=== PATIENT | male | born 2000 | race Caucasian/White ===

== ENCOUNTER 2019-02-03 09:15 | Outpatient (CLI) | payer BC | END 2019-02-03 09:16 | disposition home or self-care (01) | LOC: CTENTCT 09:15 | PROVIDERS: ATTEND Specialist | DX: J33.9 Nasal polyp, unspecified (principal) | CPT/HCPCS: 70486 ==

== ENCOUNTER → 2019-02-18 | Day surgery (SDC) | payer BC ==
[2019-02-17 10:57] VITALS: BMI 20.9
[~2019-02-18] MED LIST: EPINEPHrine 1 MG/ML AMP ONE; Fentanyl 100 MCG/2 ML VIAL ONE; Hydrocodone-Acetamin 15 ML UDCUP ONE; Lidocaine 1% w/Epinephrine 1:100K 20 ML VIAL ONE; Meperidine HCl/PF 25 MG/ML VIAL ONE; Midazolam HCl 2 mg/2 ml Vial ONE; Oxymetazoline HCl 0.05% ( 15 ML ) ONE; Triamcinolone 40 MG/ML VIAL ONE
--- NOTE | 2019-02-19 09:57 | OP ---
DATE OF PROCEDURE: 02/18/2019 PREOPERATIVE DIAGNOSES: 1. Chronic sinusitis. 2. Allergic fungal sinusitis. 3. Nasal polyposis. 4. Hypertrophic inferior turbinates. POSTOPERATIVE DIAGNOSES: 1. Chronic sinusitis. 2. Allergic fungal sinusitis. 3. Nasal polyposis. 4. Hypertrophic inferior turbinates. PROCEDURES PERFORMED: 1. Stereotactic imaging using computer guidance system. 2. Bilateral nasal endoscopy with polypectomy. 3. Bilateral nasal endoscopy with frontal sinusotomy. 4. Bilateral nasal endoscopy with total ethmoidectomy. 5. Bilateral nasal endoscopy with sphenoidotomy. 6. Bilateral nasal endoscopy with maxillary antrostomy with removal of tissue. 7. Bilateral nasal endoscopy with submucosal resection of inferior turbinates. FINDINGS: The patient had dramatically extensive polyp and allergic fungal mucin with expansion of the intraorbital space, natural os of the frontal recess, and displacement of maxillary sinuses. Copious amounts of fungal debris and polyps were addressed. DESCRIPTION OF PROCEDURE: BILATERAL NASAL ENDOSCOPY WITH POLYPECTOMY: Under endoscopic visualization, the nasal cavity was systematically examined and encountered large inflammatory polyps. These polyps were infiltrated 1% lidocaine with 1:100,000 epinephrine. The polyps were then addressed using the [employer] shaver. Then, the polyps were removed with care not to injure the surrounding normal mucosa. Samples of polyps were taken and sent for histologic evaluation. Bleeding was then controlled. BILATERAL NASAL ENDOSCOPY WITH FRONTAL SINUSOTOMY: Following the ethmoidectomy, we then turned our attention to the frontal nasal recess. The agger nasi cells were addressed and the frontal recess was exposed. The natural opening to the frontal sinus was identified. At this point, any obstructing shrouds of mucosa and bony fragments were removed with a curved microdebrider. The wound was then examined and found to be free of any obstructing debris. We then turned our attention to the contralateral side and performed a similar procedure again under endoscopic visualization using a 45-degree scope. We were able to visualize the frontal recess. Obstructing shrouds of mucosa and bone were removed with a microdebrider. The natural os of frontal sinus was identified and enlarged and irrigated. At this point, the frontal sinusotomy was completed and we turned to the next area of concern. BILATERAL NASAL ENDOSCOPY WITH TOTAL ETHMOIDECTOMY: The anterior face of the ethmoid bulla was entered and with the micro-debrider, dissection continued posteriorly to the ground lamella. The limits of dissection included the insertion of the middle turbinate, medial orbital wall, and base of skull. We similarly identified the frontal recess and removed shrouds of bone and debris in that region to obtain patency into the agger nasi region and frontal recess. We then entered the ground lamella and its anteroinferior aspect and proceeded posteriorly, opening the posterior ethmoid air-cell system. Again, the limits of dissection included the base of skull and medial orbital wall. BILATERAL NASAL ENDOSCOPY WITH SPHENOIDOTOMY: The anterior face of the sphenoid was identified and entered in its extreme anteroinferior aspect. A sphenoid punch was then used to enlarge the sphenoidotomy and no injury to the optic nerve or internal carotid artery occurred. BILATERAL NASAL ENDOSCOPY WITH MAXILLARY ANTROSTOMY WITH REMOVAL OF TISSUE: The uncinate was then identified and the extent of the uncinate was appreciated by out-fracturing the uncinate with the ball-tip probe. We then used the sickle blade to disarticulate the uncinate from the lateral nasal wall. This was then removed with straight biting and upbiting punches with the remaining shrouds of mucosa and bony septum removed with the micro-debrider. The natural os of the maxillary sinus was then identified and enlarged with the maxillary punches and back biting forceps. BILATERAL NASAL ENDOSCOPY WITH SUBMUCOSAL RESECTION OF INFERIOR TURBINATES: After consent was obtained, the patient was identified, brought to the operating room, and placed on the operating room table in the supine position. Consent was obtained, notifying the patient of the possibility of additional infections, bleeding, brain injury, and eye/orbital injury. The patient was placed on the operating room table, and general endotracheal anesthesia and intravenous access was obtained. The patient was then positioned, prepped and draped for endoscopic sinus surgery. Nasal preparation included trimming nasal vestibular hairs and spraying in topical Afrin. We then placed Afrin topical solution on nasal pledgets and strategically located them intranasally. The perinasal mucosa was injected with 1% lidocaine with 1:100,000 epinephrine in the submucoperichondrial plane of the septum, lateral nasal wall, and anterior to the uncinate. The patient was then prepped and draped in a sterile fashion and positioned for endoscopic sinus surgery. With the 0-degree endoscope, the patient underwent systematic nasal endoscopy. There were no suspicious internasal masses or lesions identified. We then focused our attention to the osteomeatal complex region under the middle turbinate. The inferior turbinates were visualized with a 0 degree endoscope and outfractured with a [place] elevator. The inferior medial aspect was cauterized with the electrocautery. Hemostasis was obtained . After adequate airway was established, we turned our attention to the contralateral side and used a similar procedure. Again, a [place] elevator was used to outfracture inferior turbinates under endoscopic visualization. With a suction cautery, the free inferior medial aspect was cauterized under direct visualization along the length of the inferior turbinate. At this point, we then turned our attention to the contralateral side and proceeded with endoscopic sinus surgery. STEROTACTIC IMAGING USING COMPUTER GUIDANCE SYSTEM At the completion of the case, Rice keel splints were placed in the ethmoid cavities after the ethmoidectomy. There were no complications. The patient tolerated the procedure well and was discharged to the recovery room in stable condition prior to return to the preoperative day stay with ultimate discharge home. Prescriptions for pain medication and antibiotics were provided. The patient received intramuscular Depo-Medrol during the case. Job ID: [id number]
== END ==
LOC: SDC 08:47
PROVIDERS: ATTEND Specialist
PROC: 09BL8ZZ Excision of Nasal Turbinate, Via Natural or Artificial Opening Endoscopic (ICD-10-PCS; principal; 2019-02-18)
PROC: 09BU8ZZ Excision of Right Ethmoid Sinus, Via Natural or Artificial Opening Endoscopic (ICD-10-PCS; principal; 2019-02-18)
PROC: 099Q8ZZ Drainage of Right Maxillary Sinus, Via Natural or Artificial Opening Endoscopic (ICD-10-PCS; principal; 2019-02-18)
PROC: 09CX8ZZ Extirpation of Matter from Left Sphenoid Sinus, Via Natural or Artificial Opening Endoscopic (ICD-10-PCS; principal; 2019-02-18)
PROC: 8E09XBZ Computer Assisted Procedure of Head and Neck Region (ICD-10-PCS; principal; 2019-02-18)
PROC: 09CW8ZZ Extirpation of Matter from Right Sphenoid Sinus, Via Natural or Artificial Opening Endoscopic (ICD-10-PCS; principal; 2019-02-18)
PROC: 09BS8ZZ Excision of Right Frontal Sinus, Via Natural or Artificial Opening Endoscopic (ICD-10-PCS; principal; 2019-02-18)
PROC: 099R8ZZ Drainage of Left Maxillary Sinus, Via Natural or Artificial Opening Endoscopic (ICD-10-PCS; principal; 2019-02-18)
PROC: 09BV8ZZ Excision of Left Ethmoid Sinus, Via Natural or Artificial Opening Endoscopic (ICD-10-PCS; principal; 2019-02-18)
PROC: 09BT8ZZ Excision of Left Frontal Sinus, Via Natural or Artificial Opening Endoscopic (ICD-10-PCS; principal; 2019-02-18)
DX: J32.4 Chronic pansinusitis (principal); J34.2 Deviated nasal septum; J34.3 Hypertrophy of nasal turbinates; J33.9 Nasal polyp, unspecified; J34.89 Other specified disorders of nose and nasal sinuses
CPT/HCPCS: 88305; J0171; J2175; J2250; J3010; J3301

== ENCOUNTER 2019-12-24 11:28 | Emergency (ER) | payer BC, OTHER ==
[2019-12-24] MEDS ORDERED: Fentanyl 100 MCG/2 ML VIAL ONE (11:34)
--- NOTE | 2019-12-24 12:02 | RAD ---
Left knee 4 views HISTORY: Injury. FINDINGS: Joint spaces are preserved. No acute fracture, dislocation, or fluid distention of the suprapatellar bursa. IMPRESSION : No abnormalities are demonstrated.
== END 2019-12-24 12:30 | disposition home or self-care (01) ==
LOC: ERS 11:28
DX: S83.005A Unspecified dislocation of left patella, initial encounter (principal); F17.220 Nicotine dependence, chewing tobacco, uncomplicated; W17.89XA Other fall from one level to another, initial encounter; Y93.H2 Activity, gardening and landscaping; Y99.0 Civilian activity done for income or pay
CPT/HCPCS: 27560; 96374; J3010